=== PATIENT | female | born 1975 | race Two or more races ===

== ENCOUNTER 2024-03-25 23:13 | Inpatient (IN) | payer SELFPAY ==
[~2024-03-25] VITALS: Ht 167.6 cm; Wt 91.6 kg
[2024-03-25 23:15] VITALS: O2SAT 99
[2024-03-26] MEDS: ONDANSETRON HCL 4MG/2ML INJ IV ONE (00:52)
[2024-03-26] MEDS: SODIUM CHLORIDE 0.9% 1,000 ML IV ONE ×2 (00:53→02:40)
[2024-03-26 01:18] LABS: CLARITY URINE CLEAR (CLEAR); COLOR URINE YELLOW (YELLOW); GLUCOSE URINE NEGATIVE (NEGATIVE); KETONES URINE TRACE (NEGATIVE); LEUKOCYTE ESTERASE URINE NEGATIVE (NEGATIVE); NITRITE URINE NEGATIVE (NEGATIVE); OCCULT BLOOD URINE NEGATIVE (NEGATIVE); PROTEIN URINE NEGATIVE (NEGATIVE); SPECIFIC GRAVITY URINE 1.026 (1.005-1.030)
[2024-03-26 01:39] LABS: BASOPHILS % 0.3 % (0.0-2.0); EOSINOPHILS % 0.2 % (0.0-5.0); HEMATOCRIT. 33.2 % (36.0-48.0); HEMOGLOBIN. 10.6 g/dL (12.0-16.0); LYMPHOCYTES % 16.5 % (20.0-50.0); MEAN CORPUSCULAR HEMOGLOBIN 25.8 pg (28.0-32.0); MEAN CORPUSCULAR HGB CONC 31.9 g/dL (31.0-37.0); MEAN CORPUSCULAR VOLUME 80.8 fL (81.0-99.0); MEAN PLATELET VOLUME 7.9 fl (7.4-10.4); MONOCYTES % 3.5 % (2.0-8.0); NEUTROPHILS % 79.5 % (40.0-76.0); PLATELET 190 x1000/uL (130-400); RED BLOOD CELL COUNT 4.11 mill/uL (4.2-5.4); WHITE BLOOD COUNT 6.9 x1000/uL (4.5-11.0)
[2024-03-26 01:43] LABS: CHLORIDE 116 mEq/L (98-107); SODIUM 147 mEq/L (136-145)
[2024-03-26 01:44] LABS: CALCIUM 7.4 mg/dL (8.7-10.4); CARBON DIOXIDE 20 mEq/L (21-32)
[2024-03-26 01:49] LABS: CREATININE 0.5 mg/dL (0.6-1.0); GLUCOSE 103 mg/dL (70-105); UREA NITROGEN BLOOD 8 mg/dL (9-23)
[2024-03-26 01:51] LABS: ACETAMINOPHEN 6 ug/mL (10-30)
[2024-03-26 01:53] LABS: *AMPHETAMINES SCREEN URINE NEGATIVE (NEGATIVE); *BARBITURATES SCREEN URINE NEGATIVE (NEGATIVE); *BENZODIAZEPINES SCREEN URINE NEGATIVE (NEGATIVE); *COCAINE SCREEN URINE NEGATIVE (NEGATIVE); CANNABINOID URINE SCREEN NEGATIVE (NEGATIVE); ECSTASY MDMA SCREEN URINE NEGATIVE (NEGATIVE); METHADONE URINE SCREEN NEGATIVE (NEGATIVE); OPIATES URINE SCREEN PRESUMPTIVE POSITIVE (NEGATIVE); PHENCYCLIDINE URINE SCREEN NEGATIVE (NEGATIVE)
[2024-03-26 02:06] LABS: ETHANOL BLOOD < 10 mg/dL (<10)
[2024-03-26 02:07] LABS: POTASSIUM 2.8 mEq/L (3.5-5.1)
[2024-03-26 02:08] LABS: HCG SCREEN NEGATIVE
[2024-03-26] MEDS: KCL 20MEQ/100ML PREMIX 100 ML IV SCH (02:40)
[2024-03-26 05:25] VITALS: BP 133/91; PULSE 89; RESP 18; TEMP 36.22512; O2SAT 99
[2024-03-26 06:11] VITALS: BP 133/91; PULSE 89; RESP 18; TEMP 36.2512
== END 2024-03-26 10:20 | disposition left against medical advice (07) | DRG 52 ==
LOC: ER 23:21 → EDBD 03-26 02:19 → 7WST 03-26 02:19 → EDBEDREQ 03-26 02:30 → ER 03-26 05:14
PROVIDERS: ADMIT Internal Medicine; ATTEND Internal Medicine
DX: G92.8 Other toxic encephalopathy (principal); F10.129 Alcohol abuse with intoxication, unspecified; E87.6 Hypokalemia; Z53.29 Procedure and treatment not carried out because of patient's decision for other reasons; Y90.0 Blood alcohol level of less than 20 mg/100 ml
CPT/HCPCS: 36415; 80048; 80305; 80307; 80320; 80329; 81003; 84703; 85025; 99285; J2405; J3480; J7030; G0480